=== PATIENT | female | born 1990 | race African-American/Black ===

== ENCOUNTER 2017-12-14 03:38 | Emergency (ER) | payer OTHER ==
[~2017-12-14] VITALS: Ht 185.4 cm; Wt 93.9 kg
--- NOTE | 2017-12-14 03:56 | NUR ---
Pt. A/Ox4, c/o coughing and green purulent discharge, N/V after eating and lieing down, denies SOB/AGUILA/CP, LS clear/bilat.,
--- NOTE | 2017-12-14 04:27 | NUR ---
Pt. eloped out of unit
== END 2017-12-14 04:25 | disposition left against medical advice (07) ==
LOC: ER 03:40
DX: R05 Cough (principal)
CPT/HCPCS: A4663